=== PATIENT | female | born 1960 | race Caucasian/White ===

== ENCOUNTER 2021-03-26 17:01 | Emergency (ER) | payer OTHER, MEDICARE ==
[~2021-03-26 17:01] MED LIST: ALLOPURINOL300 MG PO; BENADRYL25 MG PO; IBU600 MG PO; LISINOPRIL-HCT1 EAC1 PO; ZANTAC150 MG PO
[2021-03-26 19:20] LABS: BASOPHIL 0.2 % (0-2); EOSINOPHIL 0.3 % (0-5); HCT 36.8 % (37.0-47.0); HGB 12.1 g/dl (12.5-16.0); LYMPHOCYTE 7.4 % (15-48); MCH 27.9 pg (25.0-31.0); MCHC 32.9 g/dL (32.0-36.0); MONOCYTE 6.1 % (0-12); NEUTROPHIL 85.5 % (41-80); NRBC 0; PLT 428 K/uL (150-400); RBC 4.33 M/uL (4.20-5.40); RDW 14.5 % (11.5-14.0); WBC 17.5 K/uL (4.0-10.5)
[2021-03-26 19:30] LABS: INR 1.09 (0.9-1.2); PROTHROMBIN TIME 13.4 SECONDS (11.4-13.6); PTT 26.4 SECONDS (22.2-34.7)
[2021-03-26 19:38] LABS: ALBUMIN 3.2 g/dL (3.4-5.0); BILIRUBIN - TOTAL 0.4 mg/dL (0.2-1.0); BUN/CREAT RATIO (CALC) 13.8 RATIO; CREATININE 1.3 mg/dL (0.51-0.95); GLOBULIN (CALCULATION) 4.1 g/dL; MAGNESIUM 1.9 mg/dL (1.8-2.4); POTASSIUM 4.4 mmol/L (3.5-5.1); TOTAL PROTEIN 7.3 g/dL (6.4-8.2)
== END 2021-03-26 21:10 | disposition other institution (70) ==
LOC: FER 17:01
PROVIDERS: Emergency Medicine
DX: S22.32XA Fracture of one rib, left side, initial encounter for closed fracture (principal); S20.212A Contusion of left front wall of thorax, initial encounter; S30.1XXA Contusion of abdominal wall, initial encounter; I10 Essential (primary) hypertension; J45.909 Unspecified asthma, uncomplicated; Z79.899 Other long term (current) drug therapy; V49.40XA Driver injured in collision with unspecified motor vehicles in traffic accident, initial encounter; Y92.410 Unspecified street and highway as the place of occurrence of the external cause
CPT/HCPCS: 36415; 70450; 71250; 80053; 83690; 83735; 84145; 84484; 85025; 85610; 85730; 86850; 86900; 86901; 93005; J7030